=== PATIENT | male | born 1995 | race African-American/Black ===

== ENCOUNTER 2017-02-12 14:12 | Emergency (ER) | payer SELFPAY ==
[~2017-02-12] VITALS: Ht 172.7 cm; Wt 175.0 kg
[2017-02-12 14:13] VITALS: BP 146/70; PULSE 63; RESP 18; TEMP 97.8; O2SAT 97
[2017-02-12] MEDS ORDERED: IBUP800T23 PO (15:41)
--- NOTE | 2017-02-12 15:41 | PD ---
HPI Chief Complaint: Pain: Acute or Chronic Time Seen by Provider: 15:40 Travel History International Travel<30 days: No Contact w/Intl Traveler<30days: No Traveled to known affect area: No History of Present Illness HPI 21-year-old male presents to the emergency Department with complaint of right knee pain since last night. He said he was running and he felt like his knee gave out. He denies paresthesias, loss of sensation, decreased range of motion , decreased strength to the affected extremity. Denies fever, chills, nausea, vomiting. Pain is to the lateral aspect of the knee. Has been ambulatory on the affected extremity, "somewhat." Took ibuprofen last night with pain with no relief. Patient is requesting something more than ibuprofen for pain. Has not taken any other medications or tried any treatments to alleviate his symptoms. No known allergies. Denies significant past medical history. No other modifying factors or associated signs and symptoms. PFSH Social History Alcohol Use: No Tobacco Use: No Substance Use: No Allergies-Medications (Allergen,Severity, Reaction): Coded Allergies: No Known Allergies (Unverified , 02/12/17) Reported Meds & Prescriptions Reported Meds & Active Scripts Active Ibuprofen 800 Mg Tab 800 Mg PO Q6HR PRN Review of Systems Except as stated in HPI: all other systems reviewed are Neg Physical Exam Narrative GENERAL: Well-nourished, well-developed male patient, in no acute distress; afebrile, nontoxic-appearing SKIN: Warm and dry. HEAD: Atraumatic. Normocephalic. EYES: Pupils equal and round. No scleral icterus. No injection or drainage. ENT: Mucosa pink and moist. Airway patent. NECK: Trachea midline. CARDIOVASCULAR: Regular rate. RESPIRATORY: No accessory muscle use. GASTROINTESTINAL: Obese. MUSCULOSKELETAL: Right knee is not edematous, nonerythematous, and without ecchymosis; with full range of motion with flexion to 90; joint stable with negative drawer test; no obvious deformity; no tenderness elicited on palpation of the lateral, medial, patellar aspects. Right knee non-edematous. NEUROLOGICAL: Awake and alert. Oriented 3. No obvious cranial nerve deficits. Motor grossly within normal limits. Normal speech. PSYCHIATRIC: Appropriate mood and affect; insight and judgment normal. Data Data Last Documented VS Vital Signs Date Time Temp Pulse Resp B/P Pulse Ox O2 Delivery O2 Flow Rate FiO2 02/12/17 14:13 97.8 63 18 146/70 97 Room Air MDM Medical Decision Making Medical Screen Exam Complete: Yes Emergency Medical Condition: Yes Medical Record Reviewed: Yes Differential Diagnosis Knee sprain, narcotic seeking, less likely fracture dislocation Narrative Course 21-year-old male with right knee sprain. I do not suspect fracture or dislocation. The knee joint is stable and I feel that imaging at this time is not necessary. Ibuprofen administered in the ER. Ibuprofen prescribed for home. Crutches and [place] bandage provided for support. Instructed patient to follow up with orthopedics if symptoms persist. Patient verbalizes understanding and agreement with treatment plan. Patient is medically cleared and stable for discharge. Discussed reasons to return to the emergency department. Instructed patient to follow up with primary care provider. Patient agrees with treatment plan. The patients vital signs are stable and the patient is stable for outpatient follow-up and treatment. Patient discharged home, stable and in no acute distress. Diagnosis Primary Impression: Right knee sprain Qualified Code: S83.91XA - Sprain of right knee, unspecified ligament, initial encounter Referrals: Orthopedist Primary Care Physician Patient Instructions: Crutch Instructions (ED), General Instructions, Knee Sprain (ED) Departure Forms: Tests/Procedures, Work Release Enter return to work date: Feb 19, 2017 Additional Instructions: Tylenol or ibuprofen as needed and as directed to reduce pain and inflammation Rest, ice, compress, and elevate extremity to decrease pain and inflammation Knee Brace for support Crutches for support Avoid aggravating activity; increase activity as tolerated Follow-up with primary care provider Return to the emergency department immediately with worsening symptoms Med/Other Pt SpecificInfo: Prescription(s) given Scripts Ibuprofen 800 Mg [id number] Mg PO Q6HR PRN (PAIN) #30 TAB Ref 0 Prov:Nuvia Pretty 02/12/17 Disposition: 01 DISCHARGE HOME Condition: Stable Nuvia Pretty Feb 12, 2017 15:41
[2017-02-12] MEDS ORDERED: IBUPROFEN 800 MG TAB PO ONE (15:45)
== END 2017-02-12 16:03 | disposition home or self-care (01) ==
LOC: NEPB 14:12
DX: S83.91XA Sprain of unspecified site of right knee, initial encounter (principal); X50.3XXA Overexertion from repetitive movements, initial encounter; Y93.02 Activity, running
CPT/HCPCS: 99283; E0113